=== PATIENT | male | born 1960 ===

== ENCOUNTER 2020-09-02 19:26 | Emergency (ER) | payer OTHER ==
--- OUTSIDE RECORDS SUMMARY | 2020-09-02 19:28 | XMS REPORT | Continuity of Care Document ---
:1960 Author Organization [facility] t Address [address] [place] [address] Care Team Providers Name Role Phone Unavailable Unavailable Unavailable Payers Payer Name Policy Type Policy Number Effective Date Expiration Date S ource Problems This patient has no known problems. Allergies, Adverse Reactions, Alerts Allergy Allergy Status Severity Reaction(s) Onset Inactive Treating Comm ents Source Name Type Date Date Clinician [place] DA Active SV 2018-0 [facility] No Known DA Active U 2009-0 [facility] Contrast 3-17 [facility] No Known DA Active U 2009-0 [facility] Food 3-17 [facility] No Known DA Active U 2009-0 [facility] Other 3-17 [facility] PENICILL DA Active U 2009-0 [facility] IN -17 [facility] Medications This patient has no known medications. Procedures This patient has no known procedures. Results Test Description Test Time Test Comments Results Result Comments Source CBC W/AUTO DIFF 2020-07-19 12:19:00 Test Item Value Reference Range Interpretation Comme nts WHITE BLOOD CELL (test code = WBC) 16.9 K/mm3 4.5-11.0 H RED BLOOD CELL (test code = RBC) 4.95 M/mm3 4.40-5.90 N HEMOGLOBIN (test code = HGB) 14.5 gm/dL 13.0-17.0 N HEMATOCRIT (test code = HCT) 45.5 % 36.0-48.0 N MEAN CELL VOLUME (test code = MCV) 91.9 UM3 80.0-94.0 N MEAN CELL HGB (test code = MCH) 29.3 UUG 25.5-32.5 N MEAN CELL HGB CONCETRATION (test code = MCHC) 31.9 gm/dL 29.0-35. 5 N RED CELL DISTRIBUTION WIDTH (test code = RDW) 14.6 % 11.5-15. 0 N RED CELL DISTRIBUTION WIDTH SD (test code = RDW-SD) 49.8 fL 34 .8-50.2 N PLATELET COUNT (test code = PLT) 463 K/mm3 150-400 H MEAN PLATELET VOLUME (test code = MPV) 8.9 fl 7.4-10.4 N NEUTROPHIL % (test code = NT%) 56.7 % 49.0-76.0 N IMMATURE GRANULOCYTE % (test code = IG%) 1.8 % 0.0-0.4 H LYMPHOCYTE % (test code = LY%) 25.8 % 23.0-38.0 N MONOCYTE % (test code = MO%) 10.3 % 1.0-10.0 H EOSINOPHIL % (test code = EO%) 4.5 % 1.0-5.0 N BASOPHIL % (test code = BA%) 0.9 % 0.0-1.0 N NUCLEATED RBC % (test code = NRBC%) 0.0 % 0.0-0.1 N NEUTROPHIL # (test code = NT#) 9.6 K/mm3 2.4-6.3 H IMMATURE GRANULOCYTE # (test code = IG#) 0.30 x10 3/uL 0.00-0.07 H LYMPHOCYTE # (test code = LY#) 4.4 K/mm3 1.2-4.0 H MONOCYTE # (test code = MO#) 1.7 K/mm3 0.0-0.6 H EOSINOPHIL # (test code = EO#) 0.8 K/MM3 0.0-0.7 H BASOPHIL # (test code = BA#) 0.2 K/mm3 0.0-0.2 N NUCLEATED RBC # (test code = NRBC#) 0.00 X10 3uL 0.00-0.01 N BASIC METABOLIC [id number] 12:18:00 Test Item Value Reference Range Interpretation Comments SODIUM (test code = NA) 128 mmol/l 134.0-147.0 L POTASSIUM (test code = K) 4.1 mmol/L 3.6-5.2 N CHLORIDE (test code = CL) 97 mmol/l 98.0-107.0 L CARBON DIOXIDE (test code = CO2) 23.7 mmol/l 21.0-33.0 N ANION GAP (test code = GAP) 11.4 0-20 N GLUCOSE (test code = GLU) 85 mg/dl 70.0-110.0 N BLOOD UREA NITROGEN (test code = 6 mg/dl 7.0-18.0 L BUN) CREATININE (test code = CREAT) 0.59 mg/dL 0.60-1.30 L GFR NON BLACK (test code = 150 mL/min 90-95 H GFRNONBLACK) GFR BLACK (test code = GFRBLACK) 182 mL/min 109-115 H CALCIUM (test code = CA) 8.7 mg/dl 8.0-10.5 N COVID 19 Asymptomatic IH [id number] 12:12:00 Test Item Value Reference Range Interpretation Comments COVID 19 NEGATIVE NEGATIVE Negative result s should be Asymptomatic IH AG treated a s presumptive and (test code = ifinconsistent with COVNONPUIAG) clinical signs and symptoms, or ne cessaryfor patient managem ent, should be tested with an alternativemole cular assay. Negative results do not preclude [id number] tion and should not be u sed as the sole basis forp atient management deci sions. Negative result s should beconsidered in the context of a pa jaxon's recent exposure s,history, presence of cli nical signs and symptoms consistentwith COVID-19. Specimen comments: If not done this admission
[2020-09-02] MEDS ORDERED: IBUPROFEN 400 MG TAB ONE (20:06)
[2020-09-02] MEDS ORDERED: IBUPROFEN 200 MG TAB PO ONE (20:06)
--- NOTE | 2020-09-02 21:07 | RAD REPORT ---
EXAM DESCRIPTION: RAD - Forearm Right - 09/02/2020 8:54 pm CLINICAL HISTORY: Pain;Swelling, trip and fall COMPARISON: No comparisons FINDINGS: No radius or ulna fracture identified. Prominent marginal spurring changes are present at elbow joint. No joint effusion seen at elbow. There is no dislocation or periosteal reaction noted. P ositioning for the examination does not allow for adequate imaging of the carpal bones. No foreign body or other soft tissue abnormality. IMPRESSION: No right forearm fracture identified. Degenerative changes, advanced for age, are presen t at the elbow joint. Exam does not allow for adequate visualization of the carpal bones.
--- NOTE | 2020-09-02 21:35 | ER ---
Nurse's Notes [facility] Name: Israel Sanchez Jr Age: 59 yrs Sex: Male : 1960 Arrival Date: 09/02/2020 Time: 19:31 Bed 23 Private MD: Diagnosis: Other specified sprain of right wrist Presentation: 09/02 19:38 Chief complaint: Patient states: Stepping out of my truck, lost my balance and tried ca1 catching myself with my R hand. I heard a pop and tried to put cold compress on. It happened around 1430 today, R now it's throbbing and swollen. Took [place] 7.5mg at 1500. Coronavirus screen: Client denies travel out of the [place] in the last 14 days. At this time, the client does not indicate any symptoms associated with coronavirus-19. Ebola Screen: Patient negative for fever greater than or equal to 101.5 degrees Fahrenheit, and additional compatible Ebola Virus Disease symptoms Patient denies exposure to infectious person. Patient denies travel to an Ebola-affected area in the 21 days before illness onset. No symptoms or risks identified at this time. Initial Sepsis Screen: Does the patient meet any 2 criteria? No. Patient's initial sepsis screen is negative. Does the patient have a suspected source of infection? No. Patient's initial sepsis screen is negative. Risk Assessment: Do you want to hurt yourself or someone else? Patient reports no desire to harm self or others. Onset of symptoms was September 02, 2020. 19:38 Method Of Arrival: Ambulatory ca1 19:38 Acuity: LLOYD 4 ca1 Triage Assessment: 22:09 General: Appears in no apparent distress. Injury Description: Bruise sustained to right iw hand. Historical: - Allergies: 19:41 No Known Allergies; ca1 - Home Meds: 19:41 Allopurinol Oral [Active]; ca1 - PMHx: 19:41 Gout; ca1 - PSHx: 19:41 Carpal Tunnel Repair; Knee surgery; ca1 - Immunization history:: Flu vaccine is not up to date. - Social history:: Smoking status: Patient reports the use of cigarette tobacco products, smokes two packs cigarettes per day. - Family history:: not pertinent. Screenin:13 Abuse screen: Denies threats or abuse. Denies injuries from another. Nutritional iw screening: No deficits noted. Tuberculosis screening: No symptoms or risk factors identified. Fall Risk None identified. Assessment: 21:12 General: Appears in no apparent distress. Behavior is calm, cooperative. Pain: iw Complains of pain in right hand and right wrist. Neuro: Level of Consciousness is awake, alert, obeys commands, Oriented to person, place, time, situation, Moves all extremities. Cardiovascular: Patient's skin is warm and dry. Respiratory: Respiratory effort is even, unlabored, Respiratory pattern is regular. Derm: Skin is intact, is healthy with good turgor, Skin is. Musculoskeletal: Range of motion: limited in right wrist. Vital Signs: 19:38 BP 152 / 87; Pulse 116; Resp 19 S; Temp 100.3(O); Pulse Ox 98% on R/A; Weight 62.6 kg ca1 (R); Height 5 ft. 6 in. (167.64 cm) (R); Pain 10/10; 21:11 BP 138 / 89; Pulse 100; Resp 16; Pulse Ox 98% ; iw 19:38 Body Mass Index 22.27 (62.60 kg, 167.64 cm) ca1 ED Course: 19:31 Patient arrived in ED. ag3 19:40 Triage completed. ca1 19:41 Arm band placed on right wrist. ca1 19:41 Affected limb iced. Affected limb elevated. ca1 19:41 Sling applied to right arm. ca1 20:51 Rin Sorensen, RN is Primary Nurse. iw 20:53 Kelly Costa MD is Attending Physician. ma2 20:54 Forearm Right XRAY In Process Unspecified. EDMS 22:08 No provider procedures requiring assistance completed. Patient did not have IV access iw during this emergency room visit. 22:09 Patient has correct armband on for positive identification. iw Administered Medications: 19:51 Drug: Ibuprofen 600 mg Route: PO; ca1 22:08 Follow up: Response: No adverse reaction iw 21:33 Drug: TORadol 60 mg Route: IM; Site: left deltoid; iw 22:08 Follow up: Response: No adverse reaction; Pain is decreased iw Outcome: 21:34 Discharge ordered by . ma2 22:08 Discharged to home ambulatory. iw 22:08 Condition: good 22:08 Discharge instructions given to patient, family, Instructed on discharge instructions, follow up and referral plans. medication usage, Demonstrated understanding of instructions, follow-up care, medications, Prescriptions given X 1. 22:09 Patient left the ED. iw Signatures: Dispatcher [employer] Rin Hurtado, RN RN iw Kelly Costa MD MD ma2 Theresa Reyes 3 Mariela Garcia RN RN ca1 Corrections: (The following items were deleted from the chart) 19:45 19:38 Chief complaint: Patient states: Stepping out of my truck, lost my balance and ca1 tried catching myself with my R hand. I heard a pop and tried to put cold compress on. It happened around 1430 today, R now it's throbbing and swollen ca1 19:53 19:53 Sling applied to right arm. ca1 ca1
--- NOTE | 2020-09-02 21:35 | EDPHYS ---
Physician Documentation [facility] Name: Israel Sanchez Jr Age: 59 yrs Sex: Male : 1960 Arrival Date: 09/02/2020 Time: 19:31 Bed 23 Private MD: ED Physician Kelly Costa HPI: 09/02 21:30 This 59 yrs old Male presents to ER via Ambulatory with complaints of Wrist Injury. ma2 21:30 The patient or guardian reports decreased range of motion, injury. The complaints ma2 affect the right wrist diffusely. Onset: The symptoms/episode began/occurred suddenly, 2 hour(s) ago. Associated signs and symptoms: Pertinent negatives: decreased sensation distally, fever, nausea, vomiting. Compartment Syndrome negative for numbness, tingling. The patient has not experienced similar symptoms in the past. Historical: - Allergies: 19:41 No Known Allergies; ca1 - Home Meds: 19:41 Allopurinol Oral [Active]; ca1 - PMHx: 19:41 Gout; ca1 - PSHx: 19:41 Carpal Tunnel Repair; Knee surgery; ca1 - Immunization history:: Flu vaccine is not up to date. - Social history:: Smoking status: Patient reports the use of cigarette tobacco products, smokes two packs cigarettes per day. - Family history:: not pertinent. ROS: 21:30 Constitutional: Negative for fever, chills, and weight loss. ma2 21:30 All other systems are negative. Exam: 21:30 Hand exam: is negative for atrophy, bony tenderness, deformity, ecchymosis, open ma2 injury, pain, perfusion abnormalities, Phalens, pulse abnormalities, puncture, snuff box/scaphoid tenderness, swelling, Exam is positive for tenderness, ROM: intact in all extremities, Circulation is intact in all extremities. sensation intact. Compartment Syndrome exam of affected extremity: is normal. Tendon exam: specific tendon testing normal through active and passive range of motion 21:30 Skin: Exam negative for 21:30 Constitutional: This is a well developed, well nourished patient who is awake, alert, and in no acute distress. Head/Face: Normocephalic, atraumatic. Cardiovascular: Regular rate and rhythm with a normal S1 and S2. No gallops, murmurs, or rubs. Normal PMI, no JVD. No pulse deficits. Respiratory: Lungs have equal breath sounds bilaterally, clear to auscultation and percussion. No rales, rhonchi or wheezes noted. No increased work of breathing, no retractions or nasal flaring. Abdomen/GI: Soft, non-tender, with normal bowel sounds. No distension or tympany. No guarding or rebound. No evidence of tenderness throughout. Neuro: Awake and alert, GCS 15, oriented to person, place, time, and situation. Cranial nerves II-XII grossly intact. Motor strength 5/5 in all extremities. Sensory grossly intact. Cerebellar exam normal. Normal gait. Vital Signs: 19:38 BP 152 / 87; Pulse 116; Resp 19 S; Temp 100.3(O); Pulse Ox 98% on R/A; Weight 62.6 kg ca1 (R); Height 5 ft. 6 in. (167.64 cm) (R); Pain 10/10; 21:11 BP 138 / 89; Pulse 100; Resp 16; Pulse Ox 98% ; iw 19:38 Body Mass Index 22.27 (62.60 kg, 167.64 cm) ca1 MDM: 20:53 Patient medically screened. ma2 21:30 Differential diagnosis: dislocation, closed fracture, contusion, abrasion, tendonitis. ma2 21:34 Data reviewed: vital signs, nurses notes. Counseling: I had a detailed discussion with ma2 the patient and/or guardian regarding: the historical points, exam findings, and any diagnostic results supporting the discharge/admit diagnosis, the presence of at least one elevated blood pressure reading (>120/80) during this emergency department visit, the need for outpatient follow up. Response to treatment: the patient's symptoms have markedly improved after treatment. 09/02 19:45 Order name: Forearm Right XRAY; Complete Time: 21:16 ca1 09/02 21:34 Order name: Wrist Splint: brace for comfort; Complete Time: 22:08 health system Administered Medications: 19:51 Drug: Ibuprofen 600 mg Route: PO; ca1 22:08 Follow up: Response: No adverse reaction iw 21:33 Drug: TORadol 60 mg Route: IM; Site: left deltoid; iw 22:08 Follow up: Response: No adverse reaction; Pain is decreased iw Disposition: 09/02/20 21:34 Discharged to Home. Impression: Other specified sprain of right wrist. - Condition is Stable. - Discharge Instructions: Wrist Pain, [id number]. - Prescriptions for Diclofenac Sodium 75 mg Oral Tablet Sustained Release - take 1 tablet by ORAL route 2 times per day; 30 tablet. - Medication Reconciliation Form, Thank You Letter, Antibiotic Education, Prescription Opioid Use form. - Follow up: Private Physician; When: Tomorrow; Reason: Continuance of care. Signatures: Dispatcher [employer] Rin Hurtado RN RN iw Kelly Costa MD MD ma2 Mariela Garcia RN RN ca1 Corrections: (The following items were deleted from the chart) 21:35 21:30 Wrist Right 3 View+[id number] ordered. [facility] 22:09 21:34 09/02/2020 21:34 Discharged to Home. Impression: Other specified sprain of right iw wrist. Condition is Stable. Discharge Instructions: Wrist Pain, [id number]. Prescriptions for Diclofenac Sodium 75 mg Oral Tablet Sustained Release - take 1 tablet by ORAL route 2 times per day; 30 tablet. and Forms are Medication Reconciliation Form, Thank You Letter, Antibiotic Education, Prescription Opioid Use. Follow up: Private Physician; When: Tomorrow; Reason: Continuance of care. ma2
[2020-09-02] MEDS ORDERED: KETOROLAC 30 MG/ML INJ ONE (21:47)
[2020-09-03 00:52] VITALS: TEMP 100.3; O2SAT 98
[2020-09-03 00:53] VITALS: BP 138/89
== END 2020-09-02 22:09 | disposition home or self-care (01) ==
LOC: ER 19:26
DX: S63.591A Other specified sprain of right wrist, initial encounter (principal); W17.89XA Other fall from one level to another, initial encounter; Y93.89 Activity, other specified; Y92.9 Unspecified place or not applicable; F17.210 Nicotine dependence, cigarettes, uncomplicated
CPT/HCPCS: 96372; 99284